=== PATIENT | female | born 1965 | race Caucasian/White ===

== ENCOUNTER → 2016-12-06 14:49 | Outpatient (CLI) | payer OTHER ==
[2013-12-19 11:50] VITALS: BMI 38.3
[~2016-12-06 14:49] MED LIST: CATAPRES0.1 MG PO; DIOVAN HCT 320/1 TAB PO; GLIPIZIDE10 MG PO; GLUCOPHAGE500 MG PO; LOPRESSOR PO; MIRAPEX0.125 MG PO; NORVASC5 MG PO
== END | disposition home or self-care (01) ==
LOC: D.LABREF 14:49
DX: Z11.59 Encounter for screening for other viral diseases (principal)

== ENCOUNTER → 2018-01-12 18:06 | Outpatient (CLI) | payer OTHER ==
[2013-12-19 11:50] VITALS: BMI 38.3
== END | disposition home or self-care (01) ==
LOC: D.MAMMO 13:00
DX: Z12.31 Encounter for screening mammogram for malignant neoplasm of breast (principal)

== ENCOUNTER 2020-09-10 14:00 | Outpatient (CLI) | payer OTHER ==
[2013-12-19 11:50] VITALS: BMI 38.3
== END 2020-09-10 23:59 | disposition home or self-care (01) ==
LOC: D.MAMMO 14:00
PROVIDERS: ATTEND Family Medicine
DX: Z12.31 Encounter for screening mammogram for malignant neoplasm of breast (principal)